=== PATIENT | female | born 1950 | race Caucasian/White ===

== ENCOUNTER 2019-06-04 22:01 | Emergency (ER) | payer MEDICARE, MEDICAID ==
[~2019-06-04] VITALS: Ht 177.8 cm; Wt 83.9 kg
[2019-06-04] MEDS ORDERED: CELEBREX200 MG PO (22:12)
== END 2019-06-05 01:17 | disposition home or self-care (01) ==
LOC: ED 22:01 → EDBD 22:02 → ED 22:02
DX: R11.2 Nausea with vomiting, unspecified (principal); Z88.5 Allergy status to narcotic agent; Z88.2 Allergy status to sulfonamides; Z88.8 Allergy status to other drugs, medicaments and biological substances; Z79.899 Other long term (current) drug therapy
CPT/HCPCS: 80053; 81001; 83735; 85025; 96361; 96374; 96375; 96376; 99284-25; J1200; J1885; J2405; J2765; J7030; J7040